=== PATIENT | female | born 1990 | race Two or more races ===

== ENCOUNTER 2021-04-28 09:05 | Outpatient (CLI) | payer OTHER ==
[~2021-04-28 09:05] MED LIST: LEVSIN0.125 MG PO; PROTONIX40 MG PO
== END 2021-04-28 09:27 | disposition home or self-care (01) ==
LOC: RAD 09:05
PROVIDERS: ATTEND Obstetrics & Gynecology
DX: N97.1 Female infertility of tubal origin (principal); R10.2 Pelvic and perineal pain